=== PATIENT | male | born 1950 | race Caucasian/White ===

== ENCOUNTER 2018-12-21 05:56 | Day surgery (SDC) | payer OTHER ==
[~2018-12-21] VITALS: Ht 175.3 cm; Wt 77.1 kg
[2018-12-21] MEDS ORDERED: fentaNYL 0.05 MG/ML VIAL ONE (07:47)
[2018-12-21] MEDS ORDERED: LIDOCAINE 2% 100 MG/5 ML UJET TP ONE (07:47)
[2018-12-21] MEDS ORDERED: MIDAZOLAM 2 MG/2 ML VIAL ONE (07:47)
[2018-12-21] MEDS ORDERED: MIDAZOLAM 2 MG/2 ML VIAL IV ONE (08:45)
[2018-12-21] MEDS ORDERED: fentaNYL 0.05 MG/ML VIAL IVP ONE (08:45)
== END 2018-12-21 09:30 | disposition home or self-care (01) ==
LOC: MDS 05:56 → MMU 06:09 → MDS 09:30
PROVIDERS: ATTEND Internal Medicine Gastroenterology
DX: K63.5 Polyp of colon (principal); K57.30 Diverticulosis of large intestine without perforation or abscess without bleeding; Z88.0 Allergy status to penicillin; Z79.899 Other long term (current) drug therapy; F17.200 Nicotine dependence, unspecified, uncomplicated; Z80.0 Family history of malignant neoplasm of digestive organs
CPT/HCPCS: 43235; 45385; J2250; J3010; J7030